=== PATIENT | female | born 1960 | race Two or more races ===

== ENCOUNTER 2019-02-28 11:52 | Outpatient (CLI) | payer OTHER | END 2019-02-28 11:56 | disposition home or self-care (01) | LOC: MAMO-SONO 11:52 | DX: Z12.31 Encounter for screening mammogram for malignant neoplasm of breast (principal); Z87.898 Personal history of other specified conditions; N60.11 Diffuse cystic mastopathy of right breast; N60.12 Diffuse cystic mastopathy of left breast; N84.0 Polyp of corpus uteri ==

== ENCOUNTER 2019-04-22 07:09 | Day surgery (SDC) | payer OTHER ==
[~2019-04-22 07:09] MED LIST: ATACAND32 MG PO; CRESTOR10 MG PO; HYDROCHLOROTH12.5 M1 PO; NORVASC5 MG PO
[2019-04-22] MEDS ORDERED: NAPROXEN SODIU550 MG PO (10:14)
== END 2019-04-22 14:10 | disposition home or self-care (01) ==
LOC: CIR.AMB 07:09
DX: N84.0 Polyp of corpus uteri (principal)